=== PATIENT | female | born 1945 | race Caucasian/White ===

== ENCOUNTER 2016-11-19 13:44 | Inpatient (IN) ==
--- NOTE | 2016-11-19 14:02 | Emergency Department Note ---
Disposition Clinical Impression: Small bowel obstruction, GI bleed Disposition: Admitted As Inpatient Condition: Good General Adult HPI - General Chief complaint: ED Abdominal Pain Stated complaint: ABD Pain N/V/dehydration/ From Dr. Elias Time Seen by Provider: 11/19/16 13:56 Source: patient Limitations: no limitations - History of Present Illness Pain Scale: 6 - Related Data Home Medications Medication Instructions Recorded Confirmed Calcium Carbonate/Vitamin D3 1 tab PO DAILY 11/29/15 11/19/16 [Calcium 500+D Tablet Chew] FLUoxetine HCl [PROzac] 20 mg PO DAILY 11/29/15 11/19/16 Metoprolol XL (24 HR) Succ [Toprol 25 mg PO DAILY 11/29/15 11/19/16 XL] Ranitidine HCl [Zantac] 300 mg PO DAILY 11/29/15 11/19/16 Triamterene/Hydrochlorothiazid 1 cap PO DAILY 11/29/15 11/19/16 [Dyazide 37.5-25 Capsule] Aspirin 81 mg PO DAILY 11/19/16 11/19/16 [place]-3/Dha/Epa/Fish Oil [Fish Oil 1 each PO DAILY 11/19/16 11/19/16 1,000 mg Softgel] Pantoprazole Sodium [Protonix] 40 mg PO DAILY 11/19/16 11/19/16 Vitamin A/Vit C/Zinc/Propolis 50 mg PO DAILY 11/19/16 11/19/16 [Zinc 15 mg Lozenges] Allergies Allergy/AdvReac Type Severity Reaction Status Date / Time penicillin V AdvReac See Verified 11/19/16 16:07 Comments Past Medical History - Past Medical History Medical history: Reports: cancer, GERD, hypertension Surgical history: Reports: appendectomy, colectomy, hysterectomy Psychiatric history: Reports: anxiety CASHIER GREETER history: Reports: no CASHIER GREETER history - Social History Smoking Status: Light tobacco smoker Smokeless Tobacco Status: No Alcohol use: Reports: none Drug use: Reports: none Physical Exam - General Limitations: no limitations General appearance: alert Course Vital Signs Temperature 98.4 F 11/19/16 13:50 Pulse Rate 106 11/19/16 13:50 Respiratory Rate 20 11/19/16 13:50 Blood Pressure 104/69 11/19/16 13:50 O2 Sat by Pulse Oximetry 96 11/19/16 13:50 Temperature 98.4 F 11/19/16 13:50 Pulse Rate 76 11/19/16 16:12 Respiratory Rate 18 11/19/16 17:27 Blood Pressure 118/54 11/19/16 17:27 O2 Sat by Pulse Oximetry 97 11/19/16 16:12 Oxygen Delivery Oxygen Delivery Room Air Medical Decision Making - Lab Data Result diagrams: 11/19/16 14:18 11/19/16 14:18 Lab Results 11/19/16 11/19/16 11/19/16 Range/Units 14:18 14:18 14:47 WBC 8.2 (4.3-11.1) K/mcL RBC 5.16 H (3.82-4.97) M/mcL Hgb 14.9 (11.5-15.4) g/dL Hct 44.3 (35.3-44.9) % MCV 85.9 (83.0-100.0) fL MCH 28.9 (28.0-33.3) pg MCHC 33.6 (31.6-35.5) g/dL RDW 13.7 (11.5-14.5) % Plt Count 320 (140-400) K/mcL MPV 10.6 (9.4-12.4) fL Seg Neutrophils % 58.0 % Band Neutrophils % 20.0 H (0-4) % Lymphocytes % 10.0 % Monocytes % 12.0 % Neutrophils # 6.4 (1.6-8.9) K/mcL Lymphocytes # 0.8 (0.6-4.6) K/mcL Monocytes # 1.0 (0.0-1.3) K/mcL Platelet Estimate Normal (Normal) Immature Plt Fraction 5.5 (1.1-6.1) % Sodium 137 (136-145) mEq/L Potassium 3.8 (3.5-4.5) mEq/L Chloride 94 L (98-109) mEq/L Carbon Dioxide 28 (19-29) mEq/L BUN 24 H (7-20) mg/dL Creatinine 1.42 H (0.57-1.11) mg/dL Est GFR ( Amer) 44 L (> 60) Est GFR (Non-Af Amer) 36 L (> 60) BUN/Creatinine Ratio 17 (6-26) Glucose 150 H (70-99) mg/dL Calculated Osmolality 291 (280-300) Lactic Acid (0.5-2.2) mmol/L Calcium 10.7 (8.6-10.8) mg/dL Lipase < 10 (8-78) Units/L Urine Color (Yellow) Urine Clarity (Clear) Urine pH (5.0-8.0) pH Units Ur Specific [place] (1.010-1.025) Urine Protein (Neg-Trace) mg/dL Urine Glucose (UA) (Normal) mg/dL Urine Ketones (Negative) mg/dL Urine Blood (Negative) Urine Nitrite (Negative) Urine Bilirubin (Negative) Urine Urobilinogen (Normal) mg/dL Ur Leukocyte Esterase (Negative) Urine Microscopic RBC (0-3) per hpf Urine Microscopic WBC (0-3) per hpf Ur Squamous Epith Cells (None-Few) per lpf Urine Bacteria (None-Few) per hpf Hyaline Casts (None-Few) per lpf Ur Culture Indicated? (NO) Stool Occult Blood Positive A (Negative) 11/19/16 11/19/16 Range/Units 15:35 17:22 WBC (4.3-11.1) K/mcL RBC (3.82-4.97) M/mcL Hgb (11.5-15.4) g/dL Hct (35.3-44.9) % MCV (83.0-100.0) fL MCH (28.0-33.3) pg MCHC (31.6-35.5) g/dL RDW (11.5-14.5) % Plt Count (140-400) K/mcL MPV (9.4-12.4) fL Seg Neutrophils % % Band Neutrophils % (0-4) % Lymphocytes % % Monocytes % % Neutrophils # (1.6-8.9) K/mcL Lymphocytes # (0.6-4.6) K/mcL Monocytes # (0.0-1.3) K/mcL Platelet Estimate (Normal) Immature Plt Fraction (1.1-6.1) % Sodium (136-145) mEq/L Potassium (3.5-4.5) mEq/L Chloride (98-109) mEq/L Carbon Dioxide (19-29) mEq/L BUN (7-20) mg/dL Creatinine (0.57-1.11) mg/dL Est GFR ( Amer) (> 60) Est GFR (Non-Af Amer) (> 60) BUN/Creatinine Ratio (6-26) Glucose (70-99) mg/dL Calculated Osmolality (280-300) Lactic Acid 0.9 (0.5-2.2) mmol/L Calcium (8.6-10.8) mg/dL Lipase (8-78) Units/L Urine Color Dark Yellow (Yellow) Urine Clarity Cloudy A (Clear) Urine pH 6.0 (5.0-8.0) pH Units Ur Specific [place] 1.023 (1.010-1.025) Urine Protein 30 H (Neg-Trace) mg/dL Urine Glucose (UA) Normal (Normal) mg/dL Urine Ketones Trace H (Negative) mg/dL Urine Blood Negative (Negative) Urine Nitrite Negative (Negative) Urine Bilirubin Small H (Negative) Urine Urobilinogen Normal (Normal) mg/dL Ur Leukocyte Esterase Small H (Negative) Urine Microscopic RBC 0-3 (0-3) per hpf Urine Microscopic WBC 5-15 H (0-3) per hpf Ur Squamous Epith Cells Many H (None-Few) per lpf Urine Bacteria None Seen (None-Few) per hpf Hyaline Casts Moderate H (None-Few) per lpf Ur Culture Indicated? YES A (NO) Stool Occult Blood (Negative) Attestation Statement - Attestation Attestation: I examined this patient and my medical decision-making was reviewed with the Resident Physician. I agree with the documented findings, disposition and treatment plan as described except to the extent set forth below. [id number] time provided Patient complains of nausea and vomiting. She was sent at the recommendation of her primary care provider with concerns of dehydration. Triage vitals reviewed by me. Patient appears in no acute distress 15:35: Patient was assessed by me. She has mild diffuse tenderness without guarding, rebound, rigidity. No peritoneal findings. CT report transcribed report reviewed by me. Call placed to surgery arch cushion press operator. Patient has have a bandemia which is concerning. Lactic acid and blood cultures ordered. Urinalysis pending
[2016-11-19] MEDS ORDERED: 0.9 % Sodium Chloride 1,000 ML IVC ONE ×2 (14:12→15:43)
[2016-11-19] MEDS ORDERED: Ondansetron 4 MG/2 ML VIAL IVP ONE (14:13)
[2016-11-19] MEDS ORDERED: *HR* Morphine 2 MG/ML SYRINGE IVP ONE (14:13)
[2016-11-19 14:25] LABS: Hematocrit 44.3 % (35.3-44.9); Hemoglobin 14.9 g/dL (11.5-15.4); Immature Platelets 5.5 % (1.1-6.1); Mean Corpuscular HGB Conc 33.6 g/dL (31.6-35.5); Mean Corpuscular Hemoglobin 28.9 pg (28.0-33.3); Mean Corpuscular Volume 85.9 fL (83.0-100.0); Mean Platelet Volume 10.6 fL (9.4-12.4); Platelet Count 320 K/mcL (140-400); Red Blood Count 5.16 M/mcL (3.82-4.97); Red Cell Distribution Width 13.7 % (11.5-14.5)
[2016-11-19 14:39] LABS: BUN/Creatinine Ratio 17 (6-26); Blood Urea Nitrogen 24 mg/dL (7-20); Calcium 10.7 mg/dL (8.6-10.8); Carbon Dioxide 28 mEq/L (19-29); Chloride 94 mEq/L (98-109); Glucose 150 mg/dL (70-99); Osmolality,Calculated 291 (280-300); Potassium 3.8 mEq/L (3.5-4.5); Sodium 137 mEq/L (136-145); eGFR For African Americans 44 (> 60); eGFR For Non-African Americans 36 (> 60)
[2016-11-19 14:42] LABS: Lipase < 10 Units/L (8-78)
[2016-11-19 14:45] LABS: Lymphocytes # 0.8 K/mcL (0.6-4.6); Neutrophils # 6.4 K/mcL (1.6-8.9); Platelet Estimate Normal (Normal)
--- NOTE | 2016-11-19 14:47 | Emergency Department Note ---
Disposition Clinical Impression: Small bowel obstruction GI bleed Qualifiers: GI bleed type/associated pathology: unspecified gastrointestinal hemorrhage type Qualified Code(s): K92.2 - Gastrointestinal hemorrhage, unspecified Disposition: Admitted As Inpatient Condition: Good Referrals: NO,PCP [Primary Care Provider] - Forms: ED Satisfaction Letter, Work/School Release Abdominal Pain HPI - General Chief Complaint: ED Abdominal Pain Stated Complaint: ABD Pain N/V/dehydration/ From Dr. Elias Time Seen by Provider: 11/19/16 13:56 Source: patient Nursing Notes Reviewed: Yes Vital Signs Reviewed: Yes - History of Present Illness HPI Narrative: This is a 71-year-old female with a past medical history of hypertension, hyperlipidemia, palpitations, and a bowel resection due to diverticulitis. She presents to the emergency department with a four-day history of diffuse abdominal pain. She states that she has also had nausea and vomiting with it. The only thing that has not relieved her symptoms is taking 325 mg of aspirin. She was seen by her primary care provider today who told her to come into the emergency department due to hypotension and possible dehydration. Pain Scale: 6 - Related Data Home Medications Medication Instructions Recorded Confirmed Calcium Carbonate/Vitamin D3 1 tab PO DAILY 11/29/15 11/19/16 [Calcium 500+D Tablet Chew] FLUoxetine HCl [PROzac] 20 mg PO DAILY 11/29/15 11/19/16 Metoprolol XL (24 HR) Succ [Toprol 25 mg PO DAILY 11/29/15 11/19/16 XL] Ranitidine HCl [Zantac] 300 mg PO DAILY 11/29/15 11/19/16 Triamterene/Hydrochlorothiazid 1 cap PO DAILY 11/29/15 11/19/16 [Dyazide 37.5-25 Capsule] Aspirin 81 mg PO DAILY 11/19/16 11/19/16 [place]-3/Dha/Epa/Fish Oil [Fish Oil 1 each PO DAILY 11/19/16 11/19/16 1,000 mg Softgel] Pantoprazole Sodium [Protonix] 40 mg PO DAILY 11/19/16 11/19/16 Vitamin A/Vit C/Zinc/Propolis 50 mg PO DAILY 11/19/16 11/19/16 [Zinc 15 mg Lozenges] Allergies Allergy/AdvReac Type Severity Reaction Status Date / Time penicillin V AdvReac See Verified 11/19/16 16:07 Comments Constitutional: Denies: fever, chills Abdominal Pain PMH - Past Medical History Medical history: Reports: cancer, GERD, hypertension Female Surgical History: Reports: appendectomy, colectomy, hysterectomy, other 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 - General Limitations: no limitations General appearance: alert - Head Head exam: atraumatic, normocephalic - Eye Eye exam: Absent: scleral icterus, conjunctival injection - ENT ENT exam: normal exam, mucous membranes dry - Neck Neck exam: Present: trachea midline. Absent: tenderness, meningismus - Chest Chest inspection: Present: symmetric chest wall rise - Respiratory Respiratory exam: Present: normal lung sounds bilaterally. Absent: respiratory distress, wheezes - Cardiovascular Cardiovascular exam: Present: regular rate, normal rhythm, normal heart sounds - Abdominal Exam Abdominal exam: Present: soft, tenderness. Absent: guarding, rebound, rigidity - Rectal Exam Rectal exam: Present: black stool, hemorrhoids - Extremities Exam Extremities exam: Present: full ROM. Absent: tenderness, pedal edema - Expanded Lower Extremity Exam Neurovascular/Tendon exam: Present: normal capillary refill - Neurological Exam Neurological exam: Present: alert, oriented X3 - Skin Skin exam: Present: warm, dry, intact, normal color Course Course Narrative: This is a 71-year-old female with a past medical history of bowel resection in 1993 after a bout of diverticulitis. She presents to the emergency department with diffuse abdominal pain, nausea and vomiting, and melenic stools.. This is most concerning for small bowel obstruction, ID, diverticulitis, GI bleed. We performed a CT of the abdomen, obtained a CBC and CMP, lactate, and blood cultures, urinalysis. At this point she is afebrile, slightly tachycardic and normotensive. - Reevaluation(s) Reevaluation #1: After administration of IV morphine, Zofran, and a liter of normal saline, she is more comfortable but still has diffuse abdominal tenderness. She has a normal white blood cell count, but has a bandemia which is concerning for a bacterial infection. She is Hemoccult positive, and melenic stool was grossly seen on rectal exam. CT of the abdomen detected a small bowel obstruction. I am contacting the general surgeon implementation engineer for consult. I will also contact the hospitalist and admit her to the hospital. I discussed this with the patient, and think that this is the most reasonable course of action at this time. She agrees with the plan. Time: 14:15 Vital Signs Temperature 98.4 F 11/19/16 13:50 Pulse Rate 106 11/19/16 13:50 Respiratory Rate 20 11/19/16 13:50 Blood Pressure 104/69 11/19/16 13:50 O2 Sat by Pulse Oximetry 96 11/19/16 13:50 Temperature 98.4 F 11/19/16 13:50 Pulse Rate 76 11/19/16 16:12 Respiratory Rate 16 11/19/16 16:12 Blood Pressure 128/72 11/19/16 16:12 O2 Sat by Pulse Oximetry 97 11/19/16 16:12 Oxygen Delivery Oxygen Delivery Room Air Abdominal Pain - MDM Narrative Medical decision making narrative: Vital Signs Temperature 98.4 F 11/19/16 13:50 Pulse Rate 106 11/19/16 13:50 Respiratory Rate 20 11/19/16 13:50 Blood Pressure 104/69 11/19/16 13:50 O2 Sat by Pulse Oximetry 96 11/19/16 13:50 Temperature 98.4 F 11/19/16 13:50 Pulse Rate 89 11/19/16 15:31 Respiratory Rate 16 11/19/16 15:31 Blood Pressure 107/65 11/19/16 15:31 O2 Sat by Pulse Oximetry 97 11/19/16 15:31 Oxygen Delivery Oxygen Delivery Room Air Abdomen/Pelvis CT 11/19/16 14:10 IMPRESSION: 1. The small bowel appears to be dilated throughout the abdomen and pelvis. There is an anastomosis seen centrally in the pelvis. Findings suggest a small bowel obstruction. No definite point of obstruction is identified. 2. Colonic diverticulosis without evidence for diverticulitis. 3. Status post appendectomy. D/ / 11/19/2016 15:37:32 Davis Smith MD / [email or web address] Interpreting Provider: Davis Smith MD - Lab Data Lab results reviewed: Yes I reviewed the patient's lab results. Result diagrams: 11/19/16 14:18 11/19/16 14:18 Lab Results 11/19/16 11/19/16 11/19/16 Range/Units 14:18 14:18 14:47 WBC 8.2 (4.3-11.1) K/mcL RBC 5.16 H (3.82-4.97) M/mcL Hgb 14.9 (11.5-15.4) g/dL Hct 44.3 (35.3-44.9) % MCV 85.9 (83.0-100.0) fL MCH 28.9 (28.0-33.3) pg MCHC 33.6 (31.6-35.5) g/dL RDW 13.7 (11.5-14.5) % Plt Count 320 (140-400) K/mcL MPV 10.6 (9.4-12.4) fL Seg Neutrophils % 58.0 % Band Neutrophils % 20.0 H (0-4) % Lymphocytes % 10.0 % Monocytes % 12.0 % Neutrophils # 6.4 (1.6-8.9) K/mcL Lymphocytes # 0.8 (0.6-4.6) K/mcL Monocytes # 1.0 (0.0-1.3) K/mcL Platelet Estimate Normal (Normal) Immature Plt Fraction 5.5 (1.1-6.1) % Sodium 137 (136-145) mEq/L Potassium 3.8 (3.5-4.5) mEq/L Chloride 94 L (98-109) mEq/L Carbon Dioxide 28 (19-29) mEq/L BUN 24 H (7-20) mg/dL Creatinine 1.42 H (0.57-1.11) mg/dL Est GFR ( Amer) 44 L (> 60) Est GFR (Non-Af Amer) 36 L (> 60) BUN/Creatinine Ratio 17 (6-26) Glucose 150 H (70-99) mg/dL Calculated Osmolality 291 (280-300) Calcium 10.7 (8.6-10.8) mg/dL Lipase < 10 (8-78) Units/L Urine Color (Yellow) Urine Clarity (Clear) Urine pH (5.0-8.0) pH Units Ur Specific [place] (1.010-1.025) Urine Protein (Neg-Trace) mg/dL Urine Glucose (UA) (Normal) mg/dL Urine Ketones (Negative) mg/dL Urine Blood (Negative) Urine Nitrite (Negative) Urine Bilirubin (Negative) Urine Urobilinogen (Normal) mg/dL Ur Leukocyte Esterase (Negative) Urine Microscopic RBC (0-3) per hpf Urine Microscopic WBC (0-3) per hpf Ur Squamous Epith Cells (None-Few) per lpf Urine Bacteria (None-Few) per hpf Hyaline Casts (None-Few) per lpf Ur Culture Indicated? (NO) Stool Occult Blood Positive A (Negative) 11/19/16 Range/Units 15:35 WBC (4.3-11.1) K/mcL RBC (3.82-4.97) M/mcL Hgb (11.5-15.4) g/dL Hct (35.3-44.9) % MCV (83.0-100.0) fL MCH (28.0-33.3) pg MCHC (31.6-35.5) g/dL RDW (11.5-14.5) % Plt Count (140-400) K/mcL MPV (9.4-12.4) fL Seg Neutrophils % % Band Neutrophils % (0-4) % Lymphocytes % % Monocytes % % Neutrophils # (1.6-8.9) K/mcL Lymphocytes # (0.6-4.6) K/mcL Monocytes # (0.0-1.3) K/mcL Platelet Estimate (Normal) Immature Plt Fraction (1.1-6.1) % Sodium (136-145) mEq/L Potassium (3.5-4.5) mEq/L Chloride (98-109) mEq/L Carbon Dioxide (19-29) mEq/L BUN (7-20) mg/dL Creatinine (0.57-1.11) mg/dL Est GFR ( Amer) (> 60) Est GFR (Non-Af Amer) (> 60) BUN/Creatinine Ratio (6-26) Glucose (70-99) mg/dL Calculated Osmolality (280-300) Calcium (8.6-10.8) mg/dL Lipase (8-78) Units/L Urine Color Dark Yellow (Yellow) Urine Clarity Cloudy A (Clear) Urine pH 6.0 (5.0-8.0) pH Units Ur Specific [place] 1.023 (1.010-1.025) Urine Protein 30 H (Neg-Trace) mg/dL Urine Glucose (UA) Normal (Normal) mg/dL Urine Ketones Trace H (Negative) mg/dL Urine Blood Negative (Negative) Urine Nitrite Negative (Negative) Urine Bilirubin Small H (Negative) Urine Urobilinogen Normal (Normal) mg/dL Ur Leukocyte Esterase Small H (Negative) Urine Microscopic RBC 0-3 (0-3) per hpf Urine Microscopic WBC 5-15 H (0-3) per hpf Ur Squamous Epith Cells Many H (None-Few) per lpf Urine Bacteria None Seen (None-Few) per hpf Hyaline Casts Moderate H (None-Few) per lpf Ur Culture Indicated? YES A (NO) Stool Occult Blood (Negative) - Radiology Data Radiology results reviewed: Yes I reviewed the patient's radiology results. - EKG Data EKG attestation: Yes I reviewed and interpreted this EKG. EKG results narrative: 11/19/2016 14:28 Ventricular rate 97 bpm, OR interval 140 ms, QRS duration 69 ms, QT 343 ms, QTC 398 ms, normal axis Sinus rhythm with a ventricular rate of 97 beats per minute. There is diffuse T -wave flattening that is new from her previous EKG performed on 09/30/2014
[2016-11-19] MEDS ORDERED: Pantoprazole 40 MG VIAL IVP ONE (15:16)
[2016-11-19 15:43] LABS: Bilirubin,Urine Small (Negative); Blood,Urine Negative (Negative); Clarity,Urine Cloudy (Clear); Color,Urine Dark Yellow (Yellow); Glucose,Urine (UA) Normal (Normal); Ketones,Urine Trace mg/dL (Negative); Leukocyte Esterase,Urine Small (Negative); Nitrite,Urine Negative (Negative); Protein,Urine 30 mg/dL (Neg-Trace); Specific Gravity,Urine 1.023 (1.010-1.025); Urobilinogen,Urine Normal (Normal)
[2016-11-19 15:45] LABS: Bacteria,Urine None Seen per hpf (None-Few); RBC,Urine 0-3 per hpf (0-3); Squamous Epithelial Cell,Urine Many per lpf (None-Few)
[2016-11-19 15:54] LABS: Hyaline Casts,Urine Moderate per lpf (None-Few)
[2016-11-19] MEDS ORDERED: Lidocaine TOPICAL Soln 50 ML BOTTLE TP ONE (16:13)
[2016-11-19] MEDS ORDERED: *HR* Morphine 2 MG/ML SYRINGE IVP PRN (17:17)
[2016-11-19] MEDS ORDERED: Ondansetron 4 MG/2 ML VIAL IVP PRN (17:17)
[2016-11-19] MEDS ORDERED: Naloxone 0.4 MG/ML INJ IVP PRN (17:17)
--- NOTE | 2016-11-19 17:41 | Internal Med History&Physical ---
Date of Encounter: 11/19/16 Time of Encounter: 17:29 Assessment and Plan (1) Small bowel obstruction Current visit: Yes Status: Acute 1 patient to continue experience midepigastric pain after eating some stirfry. She can began to vomit. Abdominal cramping CT of abdomen did reveal small bowel obstruction. Patient was made nothing by mouth which we will continue. NG to low wall suction 2 surgery has been consulted per ER physician-Dr. Linares 3 Zofran for nausea and morphine for pain (2) GI bleed Current visit: Yes Status: Acute 1 patient did have 1 episode of dark stools yesterday. She also had occult positive blood. Colonoscopy performed 11/2015 did reveal internal hemorrhoids. Presently hemoglobin is stable however patient is dehydrated. We will continue nothing by mouth status give IV fluids 2 continue to monitor H&H 3 continue with Protonix 4 consult GI as needed Qualifiers: GI bleed type/associated pathology: unspecified gastrointestinal hemorrhage type Qualified Code(s): K92.2 - Gastrointestinal hemorrhage, unspecified (3) JACINDA (acute kidney injury) Current visit: Yes Status: Acute Creatinine is 1.42 appears her baseline is around 0.9. Suspect this is related to dehydration. We will continue IV fluids overnight continue to monitor creatinine 2 avoid nephrotoxins 3 monitor intake and daily weights (4) Dehydration Current visit: Yes Status: Acute 1 patient has been experiencing nausea vomiting for approximately 2 days and difficulty maintaining oral intake. We will continue with IV fluids 2 monitor electrolytes and replace as needed (5) HTN (hypertension) Current visit: Yes Status: Acute Presently stable we will continue to monitor Qualifiers: Hypertension type: essential hypertension Qualified Code(s): I10 - Essential (primary) hypertension (6) DVT prophylaxis Current visit: Yes Status: Acute SCDs due to positive occult stool Internal Medicine - H&P: HPI Chief complaint: ABD pain Admitted From: Emergency Dept Plans for Post Hospital Care: Home History of present illness: Ms. Miranda is a 71 year old female with past medical history of hypertension hyperlipidemia bowel resection in 1990 due to diverticulitis. Patient has been her usual state of health when on Thursday after she had eaten some stir tomas she began to experience sharp stabbing epigastric pain that then radiated diffusly across her abd cramping. By Thursday the pain was more constant and she began to vomit undigested food. The pain was relieved after vomiting and once it would return it would radiate down her abdomen. She denies any fevers or chills , chest pain shortness of breath, hematemesis, hematochezia or diarrhea. She did have 1 small stool which she described as black as well as some blood on her tissue paper however she admits to hemorrhoids. She was belching however she was unable to pass any flatus. Abdomen was distended and tender. She did go to her primary care physician today who advised her to go to the ER. According to ER records lab work did reveal elevated creatinine 1.4- 12 BUN 24. No leukocytosis however she did have some bandemia. Hemoglobin stable at 14.9. Occult stool was positive. CT of abdomen was obtained which did reveal a small bowel obstruction. Surgery was consulted-Dr. Linares- per ER physician. NG was placed patient was given IV fluids lactate was ordered. Urinalysis did reveal slight UTI. She will be admitted for further workup and evaluation. Currently patient denies any abdominal pain she does appear to be respiratory distress. Lung sounds are clear heart sounds are regular S1 and S2 with no rubs clicks murmurs noted abdomen is flat nontender to palpation no pedal edema. She is hemodynamically stable this time. Review this case with Dr. Ospina who agrees with plan Past Med Surg Social Fam HX - Past Medical History Medical history: cancer, GERD, hypertension Psychiatric history: anxiety - Past Surgical History Surgical History: appendectomy, colectomy, hysterectomy - Social History Smoking Status: Light tobacco smoker Smokeless Tobacco Status: No Alcohol use: none Drug use: none - Family History Mother Living Status: Age at : 68 Cause of : colon cancer Internal Medicine - H&P: Meds Calcium Carbonate/Vitamin D3 [Calcium 500+D Tablet Chew] 1 tab PO DAILY [History] FLUoxetine HCl [PROzac] 20 mg PO DAILY 11/29/15 [History] Metoprolol XL (24 HR) Succ [Toprol XL] 25 mg PO DAILY 11/29/15 [History] Ranitidine HCl [Zantac] 300 mg PO DAILY 11/29/15 [History] Triamterene/Hydrochlorothiazid [Dyazide 37.5-25 Capsule] 1 cap PO DAILY [History] Aspirin 81 mg PO DAILY 11/19/16 [History] [place]-3/Dha/Epa/Fish Oil [Fish Oil 1,000 mg Softgel] 1 each PO DAILY 11/19/16 [ History] Pantoprazole Sodium [Protonix] 40 mg PO DAILY 11/19/16 [History] Vitamin A/Vit C/Zinc/Propolis [Zinc 15 mg Lozenges] 50 mg PO DAILY 11/19/16 [ History] Allergies penicillin V Adverse Reaction (Verified 11/19/16 16:07) See Comments AT AGE 12 GOT A KNOT ON HER ARM, HAS NOT TRIED SINCE All Systems PM: A 10-system review of systems was performed and is negative for pertinent findings except as documented above in the HPI. - Constitutional Constitutional: no chills, no fever(s), no night sweats - EENT Eyes: no change in vision, no discharge, no pain, no photophobia Nose, mouth and throat: no dysphagia, no nasal discharge, no neck pain, no sore throat - Cardiovascular Cardiovascular ROS IM: no chest pain, no diaphoresis, no dyspnea, no lightheadedness, no palpitations, no syncope - Respiratory Respiratory: no cough, no dyspnea, no wheezing, no excessive phlegm production - Gastrointestinal Gastrointestinal: abdominal pain, bloating, melena, nausea, vomiting - Genitourinary Genitourinary: no change in urinary stream, no dysuria, no flank pain, no hematuria - Musculoskeletal Musculoskeletal ROS IM: no numbness, no tingling - Integumentary Integumentary IM: no rash, no unusual bruising - Neurological Neurological ROS: no confusion, no convulsions, no focal weakness, no numbness, no tingling, no tremor(s) - Hematologic/Lymphatic Hematologic/Lymphatic: no easy bruising - Constitutional Vitals: Temp Pulse Resp BP Pulse Ox 98.4 F 76 18 118/54 97 11/19/16 13:50 11/19/16 16:12 11/19/16 17:27 11/19/16 17:27 11/19/16 16:12 General appearance: Present: A&O X 3, pleasant, answers questions appropriately - Head Head exam: Present: atraumatic, normocephalic - Eye Eye exam: Present: PERRL, conjuntiva pink, sclera anicteric Pupils: Present: PERRL - Neck Neck exam general surgery: Present: supple, trachea midline. Absent: lymphadenopathy - Respiratory Respiratory exam: Present: CTAB. Absent: accessory muscle use, rales, rhonchi, wheezes - Cardiovascular Cardiovascular exam: Present: RRR, +S1, +S2. Absent: diastolic murmur, gallop, rubs, systolic murmur - GI/Abdominal GI/Abdominal exam: Present: soft, no peritoneal signs. Absent: distended, tenderness - Extremities Exam Extremities exam: Present: warm, radial pulses palpable and symetrical. Absent : calf tenderness, cyanotic, pedal edema - Neurological Exam Neurological exam: Present: CN II-XII intact, oriented X3, no focal deficits. Absent: pronater drift, facial droop, speech deficit - Skin Skin exam: Present: dry, intact Internal Med - H&P Results - Labs CBC & Chem 7: 11/19/16 14:18 11/19/16 14:18 - EKG Data EKG shows normal: sinus rhythm - EKG Data Prior EKG available for review: yes When compared to previous EKG: there is no significant change - Diagnostic Studies Other Images Additional comments: Abdomen/Pelvis CT 11/19/16 14:10 IMPRESSION: 1. The small bowel appears to be dilated throughout the abdomen and pelvis. There is an anastomosis seen centrally in the pelvis. Findings suggest a small bowel obstruction. No definite point of obstruction is identified. 2. Colonic diverticulosis without evidence for diverticulitis. 3. Status post appendectomy. D/ / 11/19/2016 15:37:32 Davis Smith MD / [email or web address] Interpreting Provider: Davis Smith MD
[2016-11-19] MEDS: 0.9 % Sodium Chloride 1,000 ML IVC SCH (19:01)
[2016-11-19] MEDS ORDERED: Famotidine 20 MG/2 ML VIAL IVP PRN (21:46)
[2016-11-20 05:04] LABS: Basophils % 0.3 %; Eosinophils # 0.1 K/mcL (0.0-0.6); Eosinophils % 1.9 %; Hematocrit 36.4 % (35.3-44.9); Immature Granulocytes % 0.3 % (0-4); Lymphocytes # 1.3 K/mcL (0.6-4.6); Lymphocytes % 21.8 %; Mean Corpuscular HGB Conc 33.5 g/dL (31.6-35.5); Mean Corpuscular Hemoglobin 29.7 pg (28.0-33.3); Mean Corpuscular Volume 88.6 fL (83.0-100.0); Mean Platelet Volume 10.9 fL (9.4-12.4); Monocytes # 0.6 K/mcL (0.0-1.3); Monocytes % 10.1 %; Neutrophils # 3.8 K/mcL (1.6-8.9); Platelet Count 239 K/mcL (140-400); Red Blood Count 4.11 M/mcL (3.82-4.97); Red Cell Distribution Width 14.2 % (11.5-14.5); Segmented Neutrophils % 65.6 %
[2016-11-20 05:07] LABS: Hemoglobin 12.2 g/dL (11.5-15.4)
[2016-11-20 05:15] LABS: BUN/Creatinine Ratio 26 (6-26); Blood Urea Nitrogen 21 mg/dL (7-20); Carbon Dioxide 31 mEq/L (19-29); Chloride 103 mEq/L (98-109); Glucose 109 mg/dL (70-99); Magnesium 1.7 mg/dL (1.6-2.6); Osmolality,Calculated 294 (280-300); Potassium 3.3 mEq/L (3.5-4.5); Sodium 140 mEq/L (136-145); eGFR For African Americans > 60 (> 60); eGFR For Non-African Americans > 60 (> 60)
[2016-11-20 05:25] LABS: Calcium 8.8 mg/dL (8.6-10.8)
[2016-11-20] MEDS: 0.9 % Sodium Chloride 1,000 ML IVC SCH ×2 (05:34→20:08)
[2016-11-20 06:12] LABS: Platelet Estimate Normal (Normal)
[2016-11-20] MEDS: Pantoprazole 40 MG VIAL IVP SCH ×2 (08:34→20:10)
--- NOTE | 2016-11-20 11:21 | General Surgery Consult Note ---
Date of Encounter: 11/20/16 Time of Encounter: 11:19 Assessment and Plan (1) Small bowel obstruction Current Visit: Yes Status: Acute CT of the abdomen and pelvis on 11/19/2016 demonstrates findings consistent with a small bowel obstruction with colonic diverticulosis Patient is currently responding to conservative treatment: Nothing by mouth except ice chips NG tube to LIWS On exam today, faint bowel sounds present along with a bowel movement noted today IV fluids-100 mL per hour PPI Serial abdominal exams Encouraged ICS and ambulation 3 times a day with assistance. Okay for nursing to clamp NG tube. Pain and distention significantly improved since NGT placed in the ED Supportive care We will re-evaluate tomorrow morning for continuation of bowel function, if NGT can be d/c and advancement of diet. (2) Abdominal pain Current Visit: Yes Status: Acute See above Qualifiers: Abdominal location: epigastric Qualified Code(s): R10.13 - Epigastric pain (3) GI bleed Current Visit: Yes Status: Acute Occult positive blood Hemoglobin dropped from 14.7-12.2 today Asymptomatic. Vital signs stable. Denies any lightheadedness. Continue to monitor H&H. We will recommend GI consult if she continues to trend down or experience hematochezia or melena. Qualifiers: GI bleed type/associated pathology: unspecified gastrointestinal hemorrhage type Qualified Code(s): K92.2 - Gastrointestinal hemorrhage, unspecified (4) GERD (gastroesophageal reflux disease) Current Visit: Yes Status: Acute Currently on Protonix. She usually takes Zantac and Protonix at home. Controlled at this time. Qualifiers: Esophagitis presence: without esophagitis Qualified Code(s): K21.9 - Gastro -esophageal reflux disease without esophagitis (5) HTN (hypertension) Current Visit: Yes Status: Chronic Well-controlled at this time. Management per medicine. Qualifiers: Hypertension type: essential hypertension Qualified Code(s): I10 - Essential (primary) hypertension (6) Hypokalemia Current Visit: Yes Status: Acute Potassium of 3.3 today. Replacing. We will recheck tomorrow. (7) Occasional tobacco smoker Current Visit: Yes Status: Chronic (8) DVT prophylaxis Current Visit: Yes Status: Acute EPCDs and ambulation 3 times a day with assistance. History of Present Illness Consult date: 11/19/16 Reason for consult: other (SBO) Requesting physician: Pasquale Chen History of present illness: Ms. Miranda is a very pleasant 71-year-old female with a past medical history of hypertension, hyperlipidemia, anxiety and GERD who presents to the [facility] emergency department with a chief complaint of epigastric abdominal pain for duration of 3 days. She states that the pain started on Thursday night after she consumed a new StirFry recipe. The pain was achy in nature and started in her epigastric region and progressed to be generalized throughout the evening and the following morning. Patient had a bowel movement on Thursday morning and and tried using Pepto-Bismol, 7-Up and aspirin with minimal relief. That afternoon she had nonbloody emesis roughly 1 time per hour. She had a scheduled 6 month follow-up with her PCP, Dr. Elias, I Thursday and follow-up with him regarding these complaints. She was subsequently transferred over to the emergency department for further evaluation. On arrival, her pulse was 106, afebrile, urinalysis showing contaminant, CBC showed bandemia with 20%, no leukocytosis, BUN of 24, creatinine of 1.24, lactic acid normal and lipase less than 10. Patient was started on antiemetics, IV hydration and pain control. A CT of the abdomen and pelvis demonstrated findings consistent with a small bowel obstruction without a definite point of obstruction and thus, surgery was consulted. NG tube to low intermittent wall suction was placed in the emergency room. She was subsequently admitted via the hospitalist service to with continuation of IV hydration, NG tube, nothing by mouth, pain control, and supportive care. On evaluation, she states that she feels "much better this morning after the NG tube ". She reports a history of a left colectomy performed in 1993 due to diverticulitis followed by a small bowel obstruction resulting in a small bowel resection due to adhesions in 1994. Additional pertinent abdominal history consists of a hysterectomy as well as an appendectomy. Patient routinely has a bowel movement every 2 days. This morning she goes on to state that she had dark red blood after a bowel movement this morning here in the hospital. She has a history of internal hemorrhoids with her most recent colonoscopy performed in November 2015 revealing internal hemorrhoids. She denies any headaches, change in vision, lightheadedness, chest pain, shortness of breath, dysuria, hemoptysis, lower extremity edema, joint pain or change in mood. We will continue to follow Ms. Miranda and offer recommendations and interventions as appropriate. Past Med Surg Social Fam HX - Past Medical History Medical history: cancer, GERD, hypertension Psychiatric history: anxiety - Past Surgical History Surgical History: appendectomy, colectomy, hysterectomy, other (Small bowel resection) - Social History Smoking Status: Light tobacco smoker Smokeless Tobacco Status: No Alcohol use: none Drug use: none - Family History Mother Name: Shirin mcdonald Age: 68 Family Member Ethnicity: Non- Living Status: Age at : 68 Cause of : colon cx Medications and Allergies Calcium Carbonate/Vitamin D3 [Calcium 500+D Tablet Chew] 1 tab PO DAILY [History] FLUoxetine HCl [PROzac] 20 mg PO DAILY 11/29/15 [History] Metoprolol XL (24 HR) Succ [Toprol XL] 25 mg PO DAILY 11/29/15 [History] Ranitidine HCl [Zantac] 300 mg PO DAILY 11/29/15 [History] Triamterene/Hydrochlorothiazid [Dyazide 37.5-25 Capsule] 1 cap PO DAILY [History] Aspirin 81 mg PO DAILY 11/19/16 [History] [place]-3/Dha/Epa/Fish Oil [Fish Oil 1,000 mg Softgel] 1 each PO DAILY 11/19/16 [ History] Pantoprazole Sodium [Protonix] 40 mg PO DAILY 11/19/16 [History] Vitamin A/Vit C/Zinc/Propolis [Zinc 15 mg Lozenges] 50 mg PO DAILY 11/19/16 [ History] Allergies penicillin V Adverse Reaction (Verified 11/19/16 16:07) See Comments AT AGE 12 GOT A KNOT ON HER ARM, HAS NOT TRIED SINCE Review of Systems All systems PM: See history of present illness General Surgery Exam Initial Vital Signs Temp Pulse Resp BP Pulse Ox 98.4 F 106 20 104/69 96 11/19/16 13:50 11/19/16 13:50 11/19/16 13:50 11/19/16 13:50 11/19/16 13:50 - General physical appearance well developed, well nourished, no distress - Eyes normal ocular movement - ENT normal mucosa, atraumatic, normocephalic - Neck trachea midline - Respiratory normal expansion, normal respiratory effort, clear to auscultation - Cardiovascular Cardiovascular exam: Present: RRR, no murmurs/rubs/gallops - Abdomen Abdomen general surgery: Present: bowel sounds present (Faint), soft, tender ( Epigastric), surgical scars (Midline). Absent: distended, guarding, rebound Abdominal Tenderness: Present: epigastic - Integumentary Integumentary general surgery: Present: warm and dry - Neurologic Present: CN 2-12 grossly intact - Psychiatric Psychiatric general surgery: Present: appropriate, oriented to person, oriented to place, oriented to time, speech is normal, memory intact Exam Initial Vital Signs Temp Pulse Resp BP Pulse Ox 98.4 F 106 20 104/69 96 11/19/16 13:50 11/19/16 13:50 11/19/16 13:50 11/19/16 13:50 11/19/16 13:50 Results - Labs 11/20/16 04:33 11/20/16 04:33 Abnormal lab results Band Neutrophils % 20.0 % (0-4) H 11/19/16 14:18 Potassium 3.3 mEq/L (3.5-4.5) L 11/20/16 04:33 Carbon Dioxide 31 mEq/L (19-29) H 11/20/16 04:33 BUN 21 mg/dL (7-20) H 11/20/16 04:33 Glucose 109 mg/dL (70-99) H 11/20/16 04:33 POC Glucose 97 (58-89) H 11/20/16 05:30 Urine Clarity Cloudy (Clear) A 11/19/16 15:35 Urine Protein 30 mg/dL (Neg-Trace) H 11/19/16 15:35 Urine Ketones Trace mg/dL (Negative) H 11/19/16 15:35 Urine Bilirubin Small (Negative) H 11/19/16 15:35 Ur Leukocyte Esterase Small (Negative) H 11/19/16 15:35 Urine Microscopic WBC 5-15 per hpf (0-3) H 11/19/16 15:35 Ur Squamous Epith Cells Many per lpf (None-Few) H 11/19/16 15:35 Hyaline Casts Moderate per lpf (None-Few) H 11/19/16 15:35 Ur Culture Indicated? YES (NO) A 11/19/16 15:35 Stool Occult Blood Positive (Negative) A 11/19/16 14:47 Diabetes panel 11/20/16 Range/Units 04:33 Sodium 140 (136-145) mEq/L Potassium 3.3 L (3.5-4.5) mEq/L Chloride 103 (98-109) mEq/L Carbon Dioxide 31 H (19-29) mEq/L BUN 21 H (7-20) mg/dL Creatinine 0.80 (0.57-1.11) mg/dL Glucose 109 H (70-99) mg/dL Calcium 8.8 D (8.6-10.8) mg/dL Calcium panel 11/20/16 Range/Units 04:33 Calcium 8.8 D (8.6-10.8) mg/dL Pituitary panel 11/20/16 Range/Units 04:33 Sodium 140 (136-145) mEq/L Potassium 3.3 L (3.5-4.5) mEq/L Chloride 103 (98-109) mEq/L Carbon Dioxide 31 H (19-29) mEq/L BUN 21 H (7-20) mg/dL Creatinine 0.80 (0.57-1.11) mg/dL Glucose 109 H (70-99) mg/dL Calcium 8.8 D (8.6-10.8) mg/dL Adrenal panel 11/20/16 Range/Units 04:33 Sodium 140 (136-145) mEq/L Potassium 3.3 L (3.5-4.5) mEq/L Chloride 103 (98-109) mEq/L Carbon Dioxide 31 H (19-29) mEq/L BUN 21 H (7-20) mg/dL Creatinine 0.80 (0.57-1.11) mg/dL Glucose 109 H (70-99) mg/dL Calcium 8.8 D (8.6-10.8) mg/dL All other labs normal. - Imaging CT scan - abdomen: report reviewed, image reviewed Consult Discharge Plan - Plan Referrals: Mayi Smith MD [Partnered Physician] -
--- NOTE | 2016-11-20 14:01 | Electrocardiograph Report ---
[place] [id number] Test Date: 2016-11-19 Pat Name: Zeny Miranda Department: 103 Room: 3A12 Gender: F Pathology Transcriptionist: : 1945 Requested By: Carroll Gaston Order Number: [id number] Reading MD: Audie Iqbal MD Measurements Intervals [place] Rate: 97 P: 28 NC: 148 QRS: 11 QRSD: 69 T: 52 QT: 343 QTc: 398 Interpretive Statements SINUS RHYTHM LEFT ATRIAL ENLARGEMENT Electronically Signed On 11-20-2016 13:59:52 EDT by uAdie Iqbal MD
--- NOTE | 2016-11-20 15:08 | Internal Med Progress Note ---
Date of Encounter: 11/20/16 Time of Encounter: 10:30 - Assessment and plan (1) Small bowel obstruction Current Visit: Yes Status: Acute Assessment and plan: Improving clinically with improving abdominal pain, decreased NG tube output and presence of bowel movements. Patient may be able to come off nasogastric tube later today. Will follow-up surgery recommendations. Continue IV hydration and bowel rest along with symptomatic treatment with pain control and when necessary antiemetics. (2) JACINDA (acute kidney injury) Current Visit: Yes Status: Resolved Assessment and plan: Likely related to dehydration from GI losses. Improved with IV hydration. (3) HTN (hypertension) Current Visit: Yes Status: Chronic Assessment and plan: Blood pressure fairly well controlled. Oral antihypertensives currently on hold due to nothing by mouth status. Qualifiers: Hypertension type: essential hypertension Qualified Code(s): I10 - Essential (primary) hypertension - Subjective Interval history: Reports feeling better with improved abdominal pain. Had 2 small bowel movements this morning. Nasogastric tube with minimal drainage at this time. - Constitutional Vitals: Temp Pulse Resp BP Pulse Ox 98.4 F 84 16 166/75 97 11/20/16 11:21 11/20/16 11:21 11/20/16 11:21 11/20/16 11:21 11/20/16 11:21 General appearance: Present: A&O X 3, answers questions appropriately - Respiratory Respiratory exam: Present: CTAB. Absent: accessory muscle use, rales, rhonchi, wheezes - Cardiovascular Cardiovascular exam: Present: RRR, +S1, +S2. Absent: diastolic murmur, gallop, rubs, systolic murmur - GI/Abdominal GI/Abdominal exam: Present: diminished bowel sounds, soft (Improving tenderness in left upper and lower quadrants), no peritoneal signs. Absent: distended, tenderness - Extremities Exam Extremities exam: Present: full ROM, warm, radial pulses palpable and symetrical. Absent: calf tenderness, cyanotic, pedal edema Internal Medicine: Result - Labs CBC & Chem 7: 11/20/16 04:33 11/20/16 04:33 Labs: Short CBC 11/20/16 Range/Units 04:33 WBC 5.8 (4.3-11.1) K/mcL Hgb 12.2 D (11.5-15.4) g/dL Hct 36.4 (35.3-44.9) % Plt Count 239 (140-400) K/mcL Neutrophils # 3.8 (1.6-8.9) K/mcL [facility] 11/20/16 04:33 Sodium 140 Potassium 3.3 L Chloride 103 Carbon Dioxide 31 H BUN 21 H Creatinine 0.80 Glucose 109 H Calcium 8.8 D - VTE Documentation of Mechanical Device: Intermittent pneumatic compression device Consult Discharge Plan - Plan Referrals: Mayi Smith MD [Partnered Physician] -
[2016-11-21 05:03] LABS: BUN/Creatinine Ratio 24 (6-26); Blood Urea Nitrogen 17 mg/dL (7-20); Calcium 7.9 mg/dL (8.6-10.8); Carbon Dioxide 23 mEq/L (19-29); Chloride 108 mEq/L (98-109); Glucose 69 mg/dL (70-99); Osmolality,Calculated 292 (280-300); Potassium 3.2 mEq/L (3.5-4.5); Sodium 141 mEq/L (136-145); eGFR For African Americans > 60 (> 60); eGFR For Non-African Americans > 60 (> 60)
[2016-11-21] MEDS: 0.9 % Sodium Chloride 1,000 ML IVC SCH (05:53)
--- NOTE | 2016-11-21 07:11 | General Surgery Progress Note ---
Date of Encounter: 11/21/16 Time of Encounter: 07:09 - Assessment and Plan (1) Small bowel obstruction Current Visit: Yes Status: Acute CT of the abdomen and pelvis on 11/19/2016 demonstrates findings consistent with a small bowel obstruction with colonic diverticulosis Patient is responding well to conservative treatment: Advancing to clears D/c NGT On exam today, faint bowel sounds present with flatus. No bowel movement IV fluids-100 mL per hour PPI Serial abdominal exams Encouraged ICS and ambulation 3 times a day with assistance Pain and distention significantly improved Supportive care Disposition: Discharge home when she is tolerating a regular diet and regained her bowel function (2) Abdominal pain Current Visit: Yes Status: Acute See above Qualifiers: Abdominal location: epigastric Qualified Code(s): R10.13 - Epigastric pain (3) GERD (gastroesophageal reflux disease) Current Visit: Yes Status: Acute Currently on Protonix. She usually takes Zantac and Protonix at home. Controlled at this time. Qualifiers: Esophagitis presence: without esophagitis Qualified Code(s): K21.9 - Gastro -esophageal reflux disease without esophagitis (4) GI bleed Current Visit: Yes Status: Acute Asymptomatic. Vital signs stable. Denies any lightheadedness. Continue to monitor H&H. We will recommend GI consult if she continues to trend down or experience hematochezia or melena. Qualifiers: GI bleed type/associated pathology: unspecified gastrointestinal hemorrhage type Qualified Code(s): K92.2 - Gastrointestinal hemorrhage, unspecified (5) HTN (hypertension) Current Visit: Yes Status: Chronic Well-controlled at this time. Management per medicine. Qualifiers: Hypertension type: essential hypertension Qualified Code(s): I10 - Essential (primary) hypertension (6) Hypokalemia Current Visit: Yes Status: Acute Potassium of 3.2 today. Potassium was ordered per medicine. (7) Occasional tobacco smoker Current Visit: Yes Status: Chronic (8) DVT prophylaxis Current Visit: Yes Status: Acute EPCDs and ambulation 3 times a day with assistance. Subjective Patient reports: no new complaints, feels better, pain is less, voiding w/o difficulty, flatus, no bowel movement, afebrile Objective Vital Signs - Last 8 Hours Temp Pulse Resp BP Pulse Ox 11/21/16 06:36 97.9 F 87 16 147/71 95 11/21/16 04:30 97.9 F 86 14 146/71 94 11/20/16 23:31 98.2 F 87 18 173/76 96 Intake and Output 11/20/16 11/20/16 11/21/16 15:59 23:59 07:59 Intake Total 100 / 100 1200 / 1200 1000 / 1000 Output Total 735 / 735 200 / 200 0 / 0 Balance -635 / -635 1000 / 1000 1000 / 1000 Intake: IV Fluids 100 / 100 1200 / 1200 1000 / 1000 0.9 % Sodium Chloride 1, 1000 / 1000 1000 / 1000 000 ML @ 100 mls/hr IVC . Q10H ELLEN Rx#:[id number] Potassium Chloride 10 mEq 100 / 100 100 / 100 /100mL 10 meq In 100 ml @ 100 mls/hr IVPB Q1H ELELN Rx#:[id number] Rocephin 1,000 MG In 100 / 100 Dextrose 5% (Minibag+) 100 ML 100 ML @ 200 mls/ hr IVPB Q24H ELLEN Rx#: [id number] Oral 0 / 0 0 / 0 Output: Urine 175 / 175 200 / 200 0 / 0 Stool 500 / 500 Gastric Tube Lavage 50 / 50 0 / 0 Amount Left Nare 50 / 50 0 / 0 Gastric Drainage 10 / 10 Other: Meal NPO NPO Stool Size Large Stool Consistency soft Stool Color Brown Weight 66.043 kg 66.179 kg Blood Glucose* 89 71 74 Patient Weight 11/21/16 23:59 Weight 66.179 kg - General physical appearance well developed, well nourished, no distress - Eyes normal ocular movement - ENT atraumatic, normocephalic - Neck Neck exam: trachea midline - Respiratory normal expansion, normal respiratory effort, clear to auscultation - Cardiovascular Cardiovascular exam: Present: RRR, no murmurs/rubs/gallops - Abdomen Abdomen: Present: bowel sounds present (faint), soft, non tender. Absent: distended, guarding, rebound - Integumentary other (Warm and dry) - Neurologic CN 2-12 grossly intact - Psychiatric oriented to time, oriented to person, oriented to place, speech is normal, memory intact - Labs 11/20/16 04:33 11/21/16 04:00 BMP 11/21/16 Range/Units 04:00 Sodium 141 (136-145) mEq/L Potassium 3.2 L (3.5-4.5) mEq/L Chloride 108 (98-109) mEq/L Carbon Dioxide 23 (19-29) mEq/L BUN 17 (7-20) mg/dL Creatinine 0.72 (0.57-1.11) mg/dL Glucose 69 L (70-99) mg/dL Calcium 7.9 L (8.6-10.8) mg/dL Vital Signs Temp Pulse Resp BP Pulse Ox 11/21/16 06:36 97.9 F 87 16 147/71 95 11/21/16 04:30 97.9 F 86 14 146/71 94 11/20/16 23:31 98.2 F 87 18 173/76 96 11/20/16 18:20 98.1 F 84 16 176/69 97 11/20/16 16:03 98.4 F 86 16 159/70 96 11/20/16 11:21 98.4 F 84 16 166/75 97 11/20/16 07:15 98.5 F 86 16 153/71 95 Intake and Output 11/20/16 11/20/16 11/21/16 15:59 23:59 07:59 Intake Total 100 / 100 1200 / 1200 1000 / 1000 Output Total 735 / 735 200 / 200 0 / 0 Balance -635 / -635 1000 / 1000 1000 / 1000 Intake: IV Fluids 100 / 100 1200 / 1200 1000 / 1000 0.9 % Sodium Chloride 1, 1000 / 1000 1000 / 1000 000 ML @ 100 mls/hr IVC . Q10H ELLEN Rx#:[id number] Potassium Chloride 10 mEq 100 / 100 100 / 100 /100mL 10 meq In 100 ml @ 100 mls/hr IVPB Q1H ELLEN Rx#:[id number] Rocephin 1,000 MG In 100 / 100 Dextrose 5% (Minibag+) 100 ML 100 ML @ 200 mls/ hr IVPB Q24H ELLEN Rx#: [id number] Oral 0 / 0 0 / 0 Output: Urine 175 / 175 200 / 200 0 / 0 Stool 500 / 500 Gastric Tube Lavage 50 / 50 0 / 0 Amount Left Nare 50 / 50 0 / 0 Gastric Drainage 10 / 10 Other: Meal NPO NPO Stool Size Large Stool Consistency soft Stool Color Brown Weight 66.043 kg 66.179 kg Blood Glucose* 89 71 74 Patient Weight 11/21/16 23:59 Weight 66.179 kg - VTE Documentation of Mechanical Device: Intermittent pneumatic compression device Consult Discharge Plan - Plan Referrals: Mayi Smith MD [Partnered Physician] -
[2016-11-21] MEDS: Pantoprazole 40 MG VIAL IVP SCH (09:42)
[2016-11-21] MEDS ORDERED: Potassium Chloride Elixir 20 MEQ/15 ML UDC PO ONE (10:08)
--- NOTE | 2016-11-21 11:52 | Internal Med Progress Note ---
Date of Encounter: 11/21/16 Time of Encounter: 10:10 - Assessment and plan (1) Small bowel obstruction Current Visit: Yes Status: Acute Assessment and plan: Improving clinically with improving abdominal pain, decreased NG tube output and presence of bowel movements. Plan to discontinue nasogastric tube and start clear liquid diet today, to advance as tolerated. Surgery follow-up appreciated. Continue symptomatic treatment with pain control and when necessary antiemetics. (2) JACINDA (acute kidney injury) Current Visit: Yes Status: Resolved (3) HTN (hypertension) Current Visit: Yes Status: Chronic Assessment and plan: Blood pressure fairly well controlled. Resume home doses of Oral antihypertensives. Qualifiers: Hypertension type: essential hypertension Qualified Code(s): I10 - Essential (primary) hypertension (4) Hypokalemia Current Visit: Yes Status: Acute Assessment and plan: Likely due to GI losses. Supplement with oral potassium chloride. - Subjective Interval history: Feels much better; improved nausea and abdominal pain; has throat discomfort from the NG tube; feels hungry and is eager to have the NG tube removed; - Constitutional Vitals: Temp Pulse Resp BP Pulse Ox 98.0 F 86 16 153/71 96 11/21/16 10:00 11/21/16 10:00 11/21/16 10:00 11/21/16 10:00 11/21/16 10:00 General appearance: Present: A&O X 3, answers questions appropriately - Respiratory Respiratory exam: Present: CTAB. Absent: accessory muscle use, rales, rhonchi, wheezes - Cardiovascular Cardiovascular exam: Present: RRR, +S1, +S2. Absent: diastolic murmur, gallop, rubs, systolic murmur - GI/Abdominal GI/Abdominal exam: Present: normal bowel sounds, soft, no peritoneal signs. Absent: distended, tenderness Internal Medicine: Result - Labs CBC & Chem 7: 11/20/16 04:33 11/21/16 04:00 Labs: BMP 11/21/16 04:00 Sodium 141 Potassium 3.2 L Chloride 108 Carbon Dioxide 23 BUN 17 Creatinine 0.72 Glucose 69 L Calcium 7.9 L - VTE Documentation of Mechanical Device: Intermittent pneumatic compression device Consult Discharge Plan - Plan Referrals: Mayi Smith MD [Partnered Physician] -
[2016-11-21] MEDS: hydroCHLOROthiazide 25 MG TABLET PO SCH (14:10)
[2016-11-21] MEDS: Metoprolol XL (24 HR) Succ 25 MG TAB.ER.24H PO SCH (14:10)
[2016-11-22 08:02] VITALS: BP 144/83
[2016-11-22] MEDS: hydroCHLOROthiazide 25 MG TABLET PO SCH (08:14)
[2016-11-22] MEDS: Metoprolol XL (24 HR) Succ 25 MG TAB.ER.24H PO SCH (08:14)
[2016-11-22] MEDS: 0.9 % Sodium Chloride 1,000 ML IVC SCH (08:15)
[2016-11-22 09:51] LABS: BUN/Creatinine Ratio 9 (6-26); Calcium 8.7 mg/dL (8.6-10.8); Carbon Dioxide 27 mEq/L (19-29); Chloride 105 mEq/L (98-109); Glucose 117 mg/dL (70-99); Osmolality,Calculated 289 (280-300); Potassium 3.2 mEq/L (3.5-4.5); Sodium 140 mEq/L (136-145); eGFR For African Americans > 60 (> 60); eGFR For Non-African Americans > 60 (> 60)
[2016-11-22 09:52] LABS: Blood Urea Nitrogen 6 mg/dL (7-20)
[2016-11-22] MEDS ORDERED: Potassium Chloride Elixir 20 MEQ/15 ML UDC PO ONE (10:18)
--- NOTE | 2016-11-22 11:03 | Discharge Summary ---
Date of Encounter: 11/22/16 Time of Encounter: 11:01 - Discharge Diagnosis (1) Small bowel obstruction Priority: Primary Status: Acute (2) JACINDA (acute kidney injury) Priority: Primary Status: Resolved (3) HTN (hypertension) Priority: Secondary Status: Chronic Qualifiers: Hypertension type: essential hypertension Qualified Code(s): I10 - Essential (primary) hypertension (4) Hypokalemia Priority: Primary Status: Acute - Discharge Medications Prescriptions: Potassium Chloride [Klor-Con Sprinkle] 10 meq PO DAILY #30 capsule.er Home Medications: Calcium Carbonate/Vitamin D3 [Calcium 500+D Tablet Chew] 1 tab PO DAILY [History] FLUoxetine HCl [Prozac] 20 mg PO DAILY 11/29/15 [History] Metoprolol XL (24 HR) Succ [Toprol Xl] 12.5 mg PO DAILY 11/29/15 [History] Aspirin 81 mg PO DAILY 11/19/16 [History] [place]-3/Dha/Epa/Fish Oil [Fish Oil 1,000 mg Softgel] 1 each PO DAILY 11/19/16 [ History] Pantoprazole Sodium [Protonix] 40 mg PO DAILY 11/19/16 [History] Vitamin A/Vit C/Zinc/Propolis [Zinc 15 mg Lozenges] 50 mg PO DAILY 11/19/16 [ History] Triamterene/HCTZ 37.5/25mg [Dyazide] 0.5 each PO DAILY 11/21/16 [History] Potassium Chloride [Klor-Con Sprinkle] 10 meq PO DAILY #30 capsule.er 11/22/16 [ Rx] Allergies/Adverse Reactions: Allergies penicillin V Adverse Reaction (Verified 11/19/16 16:07) See Comments AT AGE 12 GOT A KNOT ON HER ARM, HAS NOT TRIED SINCE Date of admission: 11/19/16 17:47 Primary care physician: PCP NONE Discharging clinician: Stephanie Russo Anticipated date of discharge: 11/22/16 - Patient Status Disposition: Home, Self-Care Condition: Good Functional capacity at discharge: independent ambulation Overall status at discharge: patient is progressing back to baseline - Discharge Instructions Follow Up With: Mayi Smith MD [Partnered Physician] - Additional Instructions: F/up with PCP in 1-2 weeks - Diet and Activity Activity: resume usual activities as tolerated Diet: advance to your usual diet, low salt diet Hospital course: Ms. Miranda is a 71 year old female Admitted with abdominal pain, nausea and vomiting. CT abdomen/pelvis showed changes suggestive of small bowel obstruction/ileus. Patient was treated with conservative medical management with bowel rest, IV hydration, supportive care with when necessary antiemetics and pain control. She also received nasogastric tube to low intermittent wall suction. Surgery was consulted as patient has history of previous partial colon resection and small bowel resection. She improved with medical management and was gradually able to tolerate oral diet and noted to have bowel movements. She is currently medically stable for discharge with outpatient follow-up. - Time Spent with Patient Total time spent providing and/or coordinating discharge services: Greater than 30 minutes (40 min) - Constitutional Vitals: Temp Pulse Resp BP Pulse Ox 97.9 F 73 15 144/83 96 11/22/16 07:57 11/22/16 07:57 11/22/16 07:57 11/22/16 07:57 11/22/16 07:57 General appearance: Present: A&O X 3, answers questions appropriately - Cardiovascular Cardiovascular exam: Present: RRR, +S1, +S2. Absent: diastolic murmur, gallop, rubs, systolic murmur - GI/Abdominal GI/Abdominal exam: Present: normal bowel sounds, soft (mild tenderness to deep palpation in LUQ), no peritoneal signs. Absent: distended, tenderness - VTE Documentation of Mechanical Device: Intermittent pneumatic compression device
== END 2016-11-22 11:50 | disposition home or self-care (01) | DRG 389 ==
LOC: EMEROO 13:44 → 3ANU 13:44
PROVIDERS: ADMIT Internal Medicine; ATTEND Internal Medicine